=== PATIENT | male | born 1945 | race Caucasian/White ===

== ENCOUNTER 2017-01-07 12:44 | Emergency (ER) | payer MEDICARE, BC ==
[2017-01-07 12:59] VITALS: BP 156/89
[2017-01-07 13:11] LABS: Urine Bilirubin Negative (NEGATIVE); Urine Blood Negative /ul (NEGATIVE); Urine Ketone Negative (NEGATIVE); Urine Nitrite Negative (NEGATIVE); Urine Protein Negative (NEGATIVE); Urine Specific Gravity 1.015 SP.GR. (1.005-1.030); Urine Urobilinogen Normal (NORMAL)
[2017-01-07 13:18] LABS: Urine Appearance Clear; Urine Bacteria None Seen; Urine Color Yellow; Urine RBC None Seen /hpf (0-5); Urine WBC None Seen /hpf (0-5)
--- NOTE | 2017-01-07 13:43 | ERNOTE ---
Back Pain ER HPI Date of Service: 01/07/17 Presenting Symptoms: injury/pain to back Time Seen by Provider: 01/07/17 13:15 Source: patient, family, RN notes reviewed Exam Limitations: no limitations Immunizations: IMMUNIZATION HX Immunizations Up to Date Yes History of Influenza Vaccine Yes Hx Pneumococcal Vaccination Yes Allergies/Adverse Reactions: Allergies No Known Allergies Allergy (Verified 01/07/17 12:58) Home Medications: HOME MEDICATIONS Diltiazem HCl [Tiazac] 420 mg PO DAILY 07/15/14 [Last Taken 07/14/14] Indapamide [Lozol] 2.5 mg PO DAILY 07/15/14 [Last Taken 07/14/14] Potassium Citrate [Urocit-K] 10 meq PO DAILY 07/15/14 [Last Taken 07/14/14] Aspirin 325 mg PO DAILY 01/07/17 [Last Taken Unknown] Cholecalciferol (Vitamin D3) [Vitamin D3] 1,000 unit PO DAILY 01/07/17 [Last Taken Unknown] Gabapentin 400 mg PO DAILY 01/07/17 [Last Taken Unknown] Ibuprofen 200 mg PO DAILY 01/07/17 [Last Taken Unknown] metFORMIN HCL [Fortamet] 500 mg PO DAILY 01/07/17 [Last Taken Unknown] rOPINIRole HCL [Requip] 1 mg PO DAILY 01/07/17 [Last Taken Unknown] Narrative: 71 y/o male brought to the ED by his for back pain that began 3 days ago. He has a history of back problems and had surgery 5 years ago. The pain began in his right lower back and radiates down the right leg. Today the pain began radiating into his right lower quadrant and groin. He has also had kidney stones in the past and was concerned that maybe the pain is due to a stone. He has an appointment to see a airborne sensor specialist in 2 days, but states that he wanted to make sure he did not have a stone first. He has been taking Tylenol and a muscle relaxant for pain. He reports the pain is currently 2 out of 10 when he is laying still. He denies the need for any pain medication currently. He also denies any urinary symptoms, but does not feel that he is urinating as much as usual. Date (Duration): 01/04/17 Location of pain: Reports: lower back, radiating to rt thigh/leg Activities at Onset: Reports: none Recent Injury?: Reports: no Associated Symptoms: Denies: fever/chills, sweating, constipation/incontinence, nausea/vomiting, problems urinating, difficulty walking, lightheadedness, numbess/weakness in legs Prior Treament: Reports: similar symptoms before. Denies: recently seen Review of Systems - Review of Systems Constitutional: Present: decreased activity level. Absent: recent illness, fever, chills EYE: Present: no symptoms reported ENT: Present: no symptoms reported Respiratory: Absent: shortness of breath, cough Cardiology: Absent: chest pain, edema Gastrointestinal/Abdominal: Absent: nausea, vomiting, diarrhea, constipation, abdominal pain Genitourinary: Present: decreased urinary output. Absent: dysuria, hematuria Musculoskeletal: Present: back pain, muscle pain. Absent: joint pain, joint swelling Skin: Absent: rash, lesions Neurological: Absent: headache, dizziness/light-headedness, weakness, numbness, tingling Endocrine: Present: no symptoms reported Hematologic/Lymphatic: Present: no symptoms reported Psych: Present: no symptoms reported - Patient's Past Medical History Patient History - Medical: Diabetes Type 2 Patient History - Cardiac/Respiratory: Hypertension Patient History - Cancer: Other Patient History - Surgical Procedures: Back Surgery Patient History - Other: None - Social History Living Situations: home Abuse History: No History of abuse Psych History: No pertinent hx Smoking Status: Never smoker Do you dip or chew tobacco: No Alcohol Use: none Drug Use: none - Immunizations Immunizations Up to Date: Yes Hx Pneumococcal Vaccination: Yes History of Influenza Vaccine: Yes Physical Exam - Physical Exam General Appearance: Present: wd/wn, alert, no apparent distress Neck: Present: normal inspection, nontender, supple, full range of motion Respiratory: Present: no respiratory distress, normal breath sounds, no accessory muscle use, lungs clear Cardiovascular/Chest: Present: regular rate, rhythm, no murmur, normal peripheral pulses Gastrointestinal/Abdominal: Present: normal bowel sounds, nondistended, soft, tenderness - RLQ. Absent: rebound, mass, hernia Back Exam: Present: no CVA tenderness, no vertebral tenderness, decreased range of motion, other - lumbar region paraspinal muscle tenderness on right Extremity Exam: Present: normal inspection, normal range of motion Neurological Exam: Present: alert, oriented, normal mood/affect, no motor/ sensory deficits Skin Exam: Present: normal color, warm/dry ED Progress - Results and Orders Patient's Lab Results:: I have reviewed the patient's lab results. - Vital Signs Patient's Vital Signs:: I have reviewed the patient's vital signs. Vital Signs: Vital Signs 01/07/17 12:50 Temperature 36.8 C Pulse Rate 82 Respiratory 15 Rate Blood Pressure 156/89 O2 Sat by Pulse 98 Oximetry - Progress/Reassessment Chief Complaint: Back Pain Progress:: Unchanged Plan - Plan Plan: No hematuria on UA. To continue current meds and see back specialist as scheduled, unless symptoms worsen, to which he is agreeable to returning for further evaluation. Departure Clinical Impression: Low back pain Qualifiers: Chronicity: acute Back pain laterality: right Sciatica presence: with sciatica Sciatica laterality: sciatica of right side Qualified Code(s): M54.41 - Lumbago with sciatica, right side - Departure Disposition: Home Follow Up Needed Condition: Stable Instructions: Back Pain, Adult Additional Instructions: Continue tylenol for pain. Take muscle relaxant as needed. Use heat to sore areas. Return if symptoms worsen, otherwise follow up with Dr. Alvarez's office later this week Referrals: Chaka Price DO [Primary Care Provider] -
== END 2017-01-07 13:44 | disposition home or self-care (01) ==
LOC: ER 12:44
DX: M54.41 Lumbago with sciatica, right side (principal)

== ENCOUNTER 2017-02-28 10:46 | Emergency (ER) | payer MEDICARE, BC ==
[2017-02-28] MEDS ORDERED: AMOX TR/POTASSIUM CLAVULANATE 875 MG TABLET PO ONE (11:05)
[2017-02-28] MEDS ORDERED: DIPHTH,PERTUSS(ACELL),TET VAC 0.5 ML VIAL IM ONE ×2 (11:05→11:30)
--- NOTE | 2017-02-28 11:18 | ERNOTE ---
Animal Bite ER Date of Service: 02/28/17 Presenting Symptoms: bitten Time Seen by Provider: 02/28/17 10:52 Source: patient Exam Limitations: no limitations Immunizations: IMMUNIZATION HX Immunizations Up to Date Yes History of Influenza Vaccine Yes Hx Pneumococcal Vaccination Yes Allergies/Adverse Reactions: Allergies No Known Allergies Allergy (Verified 02/28/17 10:58) Home Medications: HOME MEDICATIONS Diltiazem HCl [Tiazac] 420 mg PO DAILY 07/15/14 [Last Taken 07/14/14] Indapamide [Lozol] 2.5 mg PO DAILY 07/15/14 [Last Taken 07/14/14] Potassium Citrate [Urocit-K] 10 meq PO DAILY 07/15/14 [Last Taken 07/14/14] Aspirin 325 mg PO DAILY 01/07/17 [Last Taken Unknown] Cholecalciferol (Vitamin D3) [Vitamin D3] 1,000 unit PO DAILY 01/07/17 [Last Taken Unknown] Gabapentin 600 mg PO DAILY 01/07/17 [Last Taken Unknown] Ibuprofen 200 mg PO DAILY 01/07/17 [Last Taken Unknown] metFORMIN HCL [Fortamet] 500 mg PO BID 01/07/17 [Last Taken Unknown] rOPINIRole HCL [Requip] 1 mg PO DAILY 01/07/17 [Last Taken Unknown] Amox Tr/Potassium Clavulanate [Augmentin 875-125 Tablet] 875 mg PO Q12H #20 tab 02/28/17 [Last Taken Unknown] Narrative: Patient presents to the ED for a bite from a dog. 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 Unknown status of shots. Bite to back of right calf. Minimal discomfort. No other injuries. No N/T/W that is new. 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 Location of Incident: Reports: street Animal Type: Reports: dog Animal's Immunization Status: Reports: unknown Severity of injury: Reports: bitten Location of Injury: Reports: lower extremity (R) Associated symptoms: Denies: numbness distally, pain on movement, tingling Prior Treatment: Denies: recently seen Review of Systems - Review of Systems Constitutional: Absent: fever Neurological: Absent: weakness - Patient's Past Medical History Patient History - Medical: Diabetes Type 2 Patient History - Cardiac/Respiratory: Hypertension Patient History - Cancer: Other Patient History - Surgical Procedures: Back Surgery Patient History - Other: None - Social History Living Situations: home Abuse History: No History of abuse Psych History: No pertinent hx Have you smoked in the past 12 months: No Alcohol Use: none Drug Use: none - Immunizations Immunizations Up to Date: Yes Hx Pneumococcal Vaccination: Yes History of Influenza Vaccine: Yes Physical Exam - Physical Exam General Appearance: Present: alert, no apparent distress Head Exam: Present: normal inspection, no evidence of injury Eye Exam: Normal inspection: bilateral Neck: Present: normal inspection Respiratory: Present: no respiratory distress, normal breath sounds, lungs clear Cardiovascular/Chest: Present: regular rate, rhythm, normal peripheral pulses, other - foot warm and well perfused Gastrointestinal/Abdominal: Present: normal bowel sounds Extremity Exam: Present: other - 4 linear superficial cuts posterior right calf. no motor or vascular deficits. No FB seen. 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 No FB seen. Nothing requiring suturing ED Progress - Vital Signs Patient's Vital Signs:: I have reviewed the patient's vital signs. Vital Signs: Vital Signs 02/28/17 02/28/17 10:52 11:01 Temperature 36.8 C 36.8 C Pulse Rate 67 67 Respiratory 14 14 Rate Blood Pressure 148/78 148/78 - Progress/Reassessment Chief Complaint: Animal Bite Progress Note-Subjective: 02/28/17 11:23 Nursing contacted animal control. Dog has been quarantined. No need for Rabies at this time. I discussed warning signs and reasons to return as well as the need for close f/u. Departure Clinical Impression: Dog bite - Departure Disposition: Home self-care Condition: Stable Instructions: Animal Bite Additional Instructions: Antibiotics as directed. Follow-up with your doctor friday for a re-check. Return for signs of infection, fever, increased pain or redness, numbness, tingling, weakness or if your condition worsens or changes in any way. Referrals: Chaka Price DO [Primary Care Provider] - Prescriptions: Amox Tr/Potassium Clavulanate [Augmentin 875-125 Tablet] 875 mg PO Q12H #20 tab
[2017-02-28] MEDS ORDERED: AMOX TR/POTASSIUM CLAVULANATE 875 MG TABLET ONE (11:29)
[2017-02-28 11:48] VITALS: BP 131/61
== END 2017-02-28 11:42 | disposition home or self-care (01) ==
LOC: ER 10:46
DX: S81.851A Open bite, right lower leg, initial encounter (principal); W54.0XXA Bitten by dog, initial encounter; Y93.01 Activity, walking, marching and hiking; Y92.480 Sidewalk as the place of occurrence of the external cause; Z23 Encounter for immunization; E11.9 Type 2 diabetes mellitus without complications; I10 Essential (primary) hypertension